=== PATIENT | female | born 1995 | race Hispanic/Latino ===

== ENCOUNTER → 2025-04-28 16:38 | Outpatient (CLI) | payer MEDICAID, SELFPAY ==
[2025-05-03 09:40] LABS: Atopobium vaginae Low - 0 Score (.); Bact Vaginosis-Assoc. bacteria Low - 0 Score (.); Candida albicans, NAA Negative (Negative); Candida glabrata Negative (Negative); Chlamydia trachomatis Negative (Negative); Megasphaera 1 Low - 0 Score (.); Neisseria gonorrhoeae Negative (Negative); Trichomoas vaginalis by NAA Negative (Negative)
== END ==
PROVIDERS: PCP Physician Assistant Medical; Visit Provider Nurse Practitioner Adult Health
DX: Z12.4 Encounter for screening for malignant neoplasm of cervix (principal); Z11.51 Encounter for screening for human papillomavirus (HPV); Z01.419 Encounter for gynecological examination (general) (routine) without abnormal findings; Z11.3 Encounter for screening for infections with a predominantly sexual mode of transmission
CPT/HCPCS: 87480; 87491; 87510; 87591; 87798; 87801

== ENCOUNTER → 2025-09-29 11:27 | Outpatient (CLI) | payer OTHER, MEDICAID, SELFPAY ==
[2025-09-29 18:46] LABS: Add Manual Diff / Slide Review NO; Hematocrit 36.2 % (36-46); Hemoglobin 12.4 g/dL (12.0-16.0); Lymphocytes Absolute Auto 1400 /uL (1100-4500); Mean Corpuscular HGB Conc 34.2 % (30-36); Mean Corpuscular Hemoglobin 29.1 PG (26-34); Mean Corpuscular Volume 84.9 fL (80-100); Platelet Count 288 X10^3/uL (150-400)
[2025-09-29 18:53] LABS: Appearance Urine UA CLOUDY; Bilirubin Urine UA NEGATIVE (NEGATIVE); Color Urine UA YELLOW; Glucose Urine UA NEGATIVE (Negative); Ketones Urine UA NEGATIVE (NEGATIVE); Leukocyte Esterase Urine UA NEGATIVE (NEGATIVE); Nitrite Urine UA NEGATIVE (Negative); Occult Blood Urine UA NEGATIVE (Negative); Protein Urine UA NEGATIVE (Negative); Specific Gravity Urine UA 1.020 (1.000-1.035); Urobilinogen Urine UA 1.0 E.U./dL (0.2)
[2025-09-29 18:57] LABS: pH Urine UA 7.0 (4.5-8.0)
[2025-09-29 19:06] LABS: Hemoglobin A1C% w Est Avg Glu 4.9 % (4.0-6.0)
[2025-09-29 19:09] LABS: Culture Indicated Urine Cult Not Indicated
[2025-09-29 19:37] LABS: TSH w/ Reflex to FT4 2.37 uIU/mL (0.47-4.68)
[2025-09-30 08:41] LABS: Hepatitis B Surface Antigen NEGATIVE s/c (NEGATIVE)
[2025-09-30 08:58] LABS: HIV 1 & 2 Ab/Ag 4th Gen Combo NEGATIVE (NEGATIVE); Hep C Virus Ab w/Reflex Quant NEGATIVE s/c (NEGATIVE)
== END ==
PROVIDERS: PCP Physician Assistant Medical; Visit Provider Nurse Practitioner Adult Health
DX: Z34.91 Encounter for supervision of normal pregnancy, unspecified, first trimester (principal); Z11.3 Encounter for screening for infections with a predominantly sexual mode of transmission; Z36.9 Encounter for antenatal screening, unspecified
CPT/HCPCS: 81001; 83036; 84443; 85025; 86592; 86803; 86900; 86901; 87340; 87389

== ENCOUNTER → 2025-10-08 08:56 | Outpatient (CLI) | payer OTHER, MEDICAID, SELFPAY | LOC: LAB 08:57 | PROVIDERS: PCP Physician Assistant Medical; Visit Provider Nurse Practitioner Adult Health | DX: Z36.9 Encounter for antenatal screening, unspecified (principal); R31.9 Hematuria, unspecified | CPT/HCPCS: 87086 ==

== ENCOUNTER → 2025-11-03 14:59 | Outpatient (CLI) | payer OTHER, SELFPAY ==
[2025-11-03 16:18] LABS: Natera Collection Specimen Collected
== END ==
PROVIDERS: PCP Physician Assistant Medical; Referring Provider Obstetrics & Gynecology; Visit Provider Obstetrics & Gynecology
DX: Z36.0 Encounter for antenatal screening for chromosomal anomalies (principal); Z34.90 Encounter for supervision of normal pregnancy, unspecified, unspecified trimester
CPT/HCPCS: 36415; 82105; 86762; 86787

== ENCOUNTER → 2025-11-11 11:57 | Outpatient (CLI) | payer OTHER, SELFPAY ==
--- NOTE | 2025-11-11 11:58 | DI.US.S_ITS ---
PROCEDURE: US OB >= 14 WEEKS FETUS INDICATIONS: anatomy OUTSIDE/PRIOR DATING DATA: Last menstrual period (LMP): 06/29/2025 LMP-based estimated date of delivery (JAZMYN): 04/05/2026. First dating scan (date and location): 11/03/2025 (see in office ultrasound) Estimated date of delivery (JAZMYN) from first dating scan: 03/15/2026 by outside ultrasound.. TECHNIQUE: Real-time scanning was performed of the fetus, with image documentation and biometric measurements. Endovaginal scanning: No COMPARISON: [facility], , OB >= 14 WEEKS FETUS, 11/03/2025, 14:55. FINDINGS: General: A single living intrauterine gestation is present. Presentation: Transverse. Placenta: Placental position is anterior , without previa. Amniotic fluid index: 18.6 cm cm, normal range is 5-24 cm. Single deepest vertical pocket is 6.7 cm. heart rate: 141 beats per minute. Maternal cervical canal: 4.5 cm long. Normal lower limit is 2.5 cm. biometrics: Biparietal diameter: 22 weeks Head circumference: 21 weeks 3 days Abdominal circumference: 23 weeks Femur length: 20 weeks 5 days Clinically estimated gestational age: 22 weeks 2 days Composite gestational age from present scan: 21 weeks 6 days Estimated weight and percentile: 460 g; 26 percentile based expected JAZMYN of 03/15/2026 by in office ultrasound. Anatomic survey: Neuro: Ventricles are non-dilated at less than 10 mm. Cisterna magna is normal at 3-11 mm. Cerebellum is normal in size and morphology. Nuchal skin fold: Normal at less than 6 mm between 14-21 weeks gestational age. Face: Nose and lips, facial profile are normal. Spine: No evidence for spina bifida. Heart: 4-chambered heart is present, with normal ventricular outflow tracts. Diaphragm: Diaphragm is intact. Stomach: Left-sided stomach is present. Kidneys: No hydronephrosis. Normal is less than 5 mm in 2nd trimester, less than 7 mm in 3rd trimester. Cord: 3-vessel cord has orthotopic insertion. Bladder: Normal in size. Extremities: All 4 extremities identified. IMPRESSION: 1. Single living IUP redemonstrated and interval growth is within normal limits with JAZMYN of 03/15/2026 by in office ultrasound. 2. Normal anatomic survey. We strive to produce accurate, complete, and clear reports of imaging services. To assist us in improving patient care, this report was composed using standard report templates and voice recognition software. Therefore, it may contain abnormal punctuation, insertions and/or omissions. Occasional wrong-word or sound-alike substitutions may occur. Though we review the report and make efforts to correct it, we do recommend that the report be read carefully in proper context to recognize any text inaccuracies. Dictated by: Mj ONTIVEROS Interpreted: Mariely Edwards MD on 11/15/2025 at 10:09 Transcribed by: JODI on 11/15/2025 at 10:14 Approved by: Mariely Edwards M.D. on 11/15/2025 at 21:27
== END ==
LOC: US 11:57
PROVIDERS: PCP Physician Assistant Medical; Referring Provider Obstetrics & Gynecology; Visit Provider Obstetrics & Gynecology
DX: Z34.92 Encounter for supervision of normal pregnancy, unspecified, second trimester (principal); Z3A.21 21 weeks gestation of pregnancy
CPT/HCPCS: 76811

== ENCOUNTER → 2025-12-01 11:52 | Outpatient (CLI) | payer OTHER, SELFPAY ==
[2025-12-01 14:31] LABS: Urine N gonorrhoeae NOT DETECTED
[2025-12-01 14:40] LABS: Urine Chlamydia NOT DETECTED
== END ==
PROVIDERS: PCP Physician Assistant Medical; Visit Provider Obstetrics & Gynecology
DX: Z11.3 Encounter for screening for infections with a predominantly sexual mode of transmission (principal)
CPT/HCPCS: 87491; 87591

== ENCOUNTER → 2025-12-01 12:37 | Outpatient (CLI) | payer OTHER, SELFPAY ==
[2025-12-01 14:25] LABS: Hematocrit 31.6 % (36-46); Hemoglobin 10.9 g/dL (12.0-16.0)
[2025-12-01 14:50] LABS: GTT (PREG) 1 Hour PP 50gm Dose 127 mg/dL (76-139)
== END ==
PROVIDERS: PCP Physician Assistant Medical; Referring Provider Obstetrics & Gynecology; Visit Provider Obstetrics & Gynecology
DX: Z13.0 Encounter for screening for diseases of the blood and blood-forming organs and certain disorders involving the immune mechanism (principal); Z13.1 Encounter for screening for diabetes mellitus
CPT/HCPCS: 36415; 82950; 85014; 85018